=== PATIENT | female | born 1960 | race Caucasian/White ===

== ENCOUNTER 2019-04-27 19:44 | Emergency (ER) | payer OTHER ==
[~2019-04-27] VITALS: Ht 162.6 cm; Wt 66.7 kg
[2019-04-27 19:48] VITALS: BP 151/95; Ht 162.6 cm; Wt 66.7 kg
== END 2019-04-27 21:29 | disposition home or self-care (01) ==
LOC: ED 19:44
DX: J40 Bronchitis, not specified as acute or chronic (principal); I10 Essential (primary) hypertension

== ENCOUNTER 2020-04-17 18:25 | Emergency (ER) | payer OTHER ==
[~2020-04-17] VITALS: Ht 157.5 cm; Wt 65.8 kg
[2020-04-17 18:34] VITALS: Ht 157.5 cm; Wt 65.8 kg
[2020-04-17 21:15] VITALS: BP 159/61
== END 2020-04-17 21:30 | disposition home or self-care (01) ==
LOC: ED 18:25
DX: R07.89 Other chest pain (principal); M54.5 Low back pain
CPT/HCPCS: J1885